=== PATIENT | male | born 1965 | race Caucasian/White ===

== ENCOUNTER 2017-08-30 08:43 | Day surgery (SDC) | payer BC ==
[~2017-08-30 08:43] MED LIST: Acetaminophen/HYDROcodone 325-5 MG Tab PO PRN; Ketorolac 30 MG/ML SDV ONE; Lactated Ringers 1,000 ML IV SCH; Lidocaine 1% 20 ML MDV ONE; Lidocaine 2% 5 ML SDV ONE; Midazolam 1 MG/ML 2 ML SDV ONE; Ondansetron 4 MG/2 ML SDV ONE; Propofol 200 MG/20 ML SDV ONE; ceFAZolin 2 GM in Premix Bag 1 BAG IV SCH; fentaNYL 100 MCG/2 ML SDV ONE
--- NOTE | 2017-08-30 09:29 | PCM.PREANE ---
Preanesthetic Assessment - Anesthesia/Transfusion/Family Hx Anesthesia History: Prior Anesthesia Reaction Other Type of Anesthesia Reaction Comment: states "woke up" during retinal surgery Family History of Anesthesia Reaction: No Transfusion History: No Prior Transfusion(s) - Review of Systems General: No Symptoms Pulmonary: No Symptoms Cardiovascular: No Symptoms Gastrointestinal: No Symptoms Neurological: No Symptoms, Difficulty Walking - Physical Assessment NPO Status Date: 08/29/17 O2 Sat by Pulse Oximetry: 95 Respiratory Rate: 16 Vital Signs: Last Vital Signs Temp 36.4 C 08/30/17 09:15 Pulse 82 08/30/17 09:15 Resp 16 08/30/17 09:15 BP 118/68 08/30/17 09:15 Pulse Ox 95 08/30/17 09:15 Height: 1.96 m Weight: 113.398 kg ASA Class: 2 Mental Status: Alert & Oriented x3 Airway Class: Mallampati = 1 Dentition: Reports: Normal Dentition ROM/Head Extension: Full Lungs: Clear to Auscultation, Normal Respiratory Effort Cardiovascular: Regular Rate, Regular Rhythm - Allergies Allergies/Adverse Reactions: Allergies Allergy/AdvReac Type Severity Reaction Status Date / Time No Known Allergies Allergy Verified 08/27/17 16:13 - Anesthesia Plan Pre-Op Medication Ordered: None (PMH: smoker, renal stones, torn meniscus) - Acknowledgements Anesthesia Type Planned: General Anesthesia Pt an Appropriate Candidate for the Planned Anesthesia: Yes Alternatives and Risks of Anesthesia Discussed w Pt/Guardian: Yes Pt/Guardian Understands and Agrees with Anesthesia Plan: Yes PreAnesthesia Questionnaire HEENT History: Reports: Cataract, Other (See Below) Other HEENT History: wears glasses Cardiovascular History: Reports: None Respiratory History: Reports: None Gastrointestinal History: Reports: None Genitourinary History: Reports: Renal Calculus Musculoskeletal History: Reports: None Neurological History: Reports: None Psychiatric History: Reports: None Endocrine/Metabolic History: Reports: None Hematologic History: Reports: None Immunologic History: Reports: None Oncologic (Cancer) History: Reports: None Dermatologic History: Reports: None - Infectious Disease History Infectious Disease History: Reports: None - Past Surgical History Head Surgeries/Procedures: Reports: None HEENT Surgical History: Reports: Cataract Surgery, Visual Other HEENT Surgeries/Procedures: repair of detached retina on right eye Cardiovascular Surgical History: Reports: None Respiratory Surgical History: Reports: None GI Surgical History: Reports: None Male Surgical History: Reports: Lithotripsy (ESWL) Neurological Surgical History: Reports: None Oncologic Surgical History: Reports: None - SUBSTANCE USE Smoking Status *Q: Current Every Day Smoker Tobacco Use Within Last Twelve Months: Cigarettes Recreational Drug Use History: No - HOME MEDS Home Medications: Home Meds Hydrocodone/Acetaminophen [Hydrocodon-Acetaminophen 5-325] 1 - 2 tab PO Q4H PRN 08/27/17 [History] - CURRENT (IN HOUSE) MEDS Current Meds: Current Medications Hydrocodone Bitart/Acetaminophen (Cable 325-5 Mg) 1 - 2 tab PO Q4H PRN PRN Reason: Pain Cefazolin Sodium/Dextrose 2 gm (/ Premix) 50 mls @ 100 mls/hr IV ONCALL AFSHIN Lactated Ringer's (Ringers, Lactated) 1,000 mls @ 100 mls/hr IV ASDIRECTED [facility] Last Admin: 08/30/17 09:16 Dose: 100 mls/hr Discontinued Medications Fentanyl (Sublimaze) Confirm Administered Dose 100 mcg .ROUTE .STK-MED ONE Stop: 08/30/17 08:42 Ketorolac Tromethamine (Toradol) Confirm Administered Dose 30 mg .ROUTE .STK- MED ONE Stop: 08/30/17 08:40 Ketorolac Tromethamine (Toradol) Confirm Administered Dose 30 mg .ROUTE .STK- MED ONE Stop: 08/30/17 08:41 Lidocaine (Xylocaine-Mpf 2%) Confirm Administered Dose 5 ml .ROUTE .STK-MED ONE Stop: 08/30/17 08:40 Lidocaine (Xylocaine-Mpf 2%) Confirm Administered Dose 10 ml .ROUTE .STK-MED ONE Stop: 08/30/17 08:41 Lidocaine HCl (Xylocaine 1%) Confirm Administered Dose 20 ml .ROUTE .STK-MED ONE Stop: 08/30/17 07:20 Midazolam HCl (Versed 1 Mg/Ml) Confirm Administered Dose 2 mg .ROUTE .STK-MED ONE Stop: 08/30/17 08:42 Ondansetron HCl (Zofran) Confirm Administered Dose 4 mg .ROUTE .STK-MED ONE Stop: 08/30/17 08:40 Ondansetron HCl (Zofran) Confirm Administered Dose 4 mg .ROUTE .STK-MED ONE Stop: 08/30/17 08:41 Propofol (Diprivan 20 Ml) Confirm Administered Dose 400 mg .ROUTE .STK-MED ONE Stop: 08/30/17 08:42
[2017-08-30] MEDS ORDERED: ceFAZolin 1 GM Vial ONE (09:52)
--- NOTE | 2017-08-30 10:37 | PCM.OPNOTE ---
- General Post-Op/Procedure Note Date of Surgery/Procedure: 08/30/17 Operative Procedure(s): R knee scope with PMM Post-Op Diagnosis: R knee medial meniscus tear Anesthesia Technique: General LMA Primary Surgeon: Fara Riddle Sap Basis Architect: Solomon Betts in mLs: 5 Condition: Good Free Text/Narrative:: tt=12 min #[id number]
--- NOTE | 2017-08-30 11:59 | PCM.POSTAN ---
POST ANESTHESIA ASSESSMENT - MENTAL STATUS Mental Status: Alert, Oriented - RESPIRATORY Respiratory Status: Respiratory Rate WNL, Airway Patent, O2 Saturation Stable - CARDIOVASCULAR CV Status: Pulse Rate WNL, Blood Pressure Stable - GASTROINTESTINAL GI Status: No Symptoms - POST OP HYDRATION Hydration Status: Adequate & Stable
[2017-08-30 12:34] VITALS: BP 112/65
--- NOTE | 2017-08-30 13:22 | PCM48HPAN ---
Post Anesthesia Note - EVALUATION WITHIN 48HRS OF ANESTHETIC Vital Signs in Normal Range: Yes Patient Participated in Evaluation: Yes Respiratory Function Stable: Yes Airway Patent: Yes Cardiovascular Function Stable: Yes Hydration Status Stable: Yes Pain Control Satisfactory: Yes Nausea and Vomiting Control Satisfactory: Yes Mental Status Recovered: Yes
--- NOTE | 2017-08-30 17:36 | OR ---
SURGEON: Fara Riddle MD DATE OF PROCEDURE: 08/30/2017 PREOPERATIVE DIAGNOSIS: Right knee medial meniscus tear. POSTOPERATIVE DIAGNOSIS: Right knee medial meniscus tear. PROCEDURE: Right knee arthroscopy with partial medial meniscectomy. OWNER CONSULTING ENGINEER: Solomon Betts PA-C. ANESTHESIA: General. ESTIMATED BLOOD LOSS: 5 mL. TOURNIQUET TIME: 12 minutes. COMPLICATIONS: None. DVT PROPHYLAXIS: Not indicated. IMPLANTS USED: None. BRIEF HISTORY: Benjamin is a 52-year-old male who has had complaint of intermittent right knee pain. He has tried conservative treatment, which has not given him lasting relief. An MRI was obtained, which did show a complex tear of the medial meniscus. Due to his lack of response to conservative treatment, I did recommend surgical intervention. The risks and goals of procedure were discussed with the patient and were documented preoperatively. He agreed to proceed. DESCRIPTION OF PROCEDURE: The patient was properly identified and brought to the operating room. He was transferred from the OR cart and placed on the operating table in supine position. General anesthesia was administered. After adequate anesthesia was obtained, a well-padded tourniquet was applied to the right lower extremity. The right lower extremity was then prepped in standard fashion using ChloraPrep solution. It was then sterilely draped. A time-out was performed to ensure correct site and procedure. Preoperative antibiotics were given. The surgical site had been marked preoperatively. An Esmarch was used to exsanguinate the right lower extremity and the tourniquet was inflated to 250 mmHg. A lateral portal arthrotomy was established. Blunt trocar and cannula were introduced into the suprapatellar pouch. Camera, inflow, and outflow were assembled. No significant synovitis was noted. The patellofemoral joint was visualized. He did have an abundant fat pad, which made visualization difficult. I then extended down the lateral gutter and no loose bodies were identified. As I was extending to the medial gutter, there appeared to be a small plica fold, which was impinging on the femoral condyle. I was able to pass underneath this to extend down the medial gutter. No loose bodies were identified within the medial gutter. I then entered the medial compartment. A medial portal arthrotomy was established. A blunt probe was inserted. He was found to have a radial tear along the posterior horn of the medial meniscus. Using a combination of biters and shaver, this was resected back to a stable remnant. It was again probed and the remainder was found to be stable. I then inspected the joint surfaces. He did have some loose fragments of cartilage along the weightbearing portion of medial femoral condyle. A chondroplasty was performed. 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 Grade 2 chondromalacia was noted along the medial tibial plateau. I then entered the notch. Both the ACL and PCL were visualized and probed and found to be intact. I then entered the lateral compartment. The lateral meniscus was probed and found to be stable. No significant degenerative changes were noted. I then re-entered the patellofemoral joint. The shaver was used to resect a small portion of the fat pad to allow visualization. The patella appeared to track centrally. Diffuse grade 2 chondromalacia was noted. I was able to examine the soft tissue impingement medially. This portion was resected to prevent any further impingement. Instruments were then removed from the knee. The portal sites were closed with 3-0 nylon. Lidocaine 1% was injected along the portal tracts. Xeroform gauze was placed over the wound and a bulky dressing was applied. The tourniquet was then deflated. He was awakened from his anesthetic and transferred back to the operating room cart. He was brought to recovery room in stable condition. All needle and sponge counts were correct. DINORAH / MERY /[id number]
== END 2017-08-30 12:55 | disposition home or self-care (01) ==
LOC: MW.SDS 08:43
PROVIDERS: ATTEND Orthopaedic Surgery
DX: S83.231A Complex tear of medial meniscus, current injury, right knee, initial encounter (principal); M22.41 Chondromalacia patellae, right knee; F17.210 Nicotine dependence, cigarettes, uncomplicated; Z87.442 Personal history of urinary calculi; Z98.49 Cataract extraction status, unspecified eye; Z98.890 Other specified postprocedural states
CPT/HCPCS: 29881; J0690; J1885; J2250; J2405; J3010; J7120; J2704

== ENCOUNTER 2019-03-11 07:58 | Emergency (ER) | payer BC, OTHER ==
[2019-03-11] MEDS ORDERED: diphenhydrAMINE 25 MG Cap PO ONE (08:08)
--- NOTE | 2019-03-11 08:12 | EDM.PDOC ---
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 He denies any cramping, shortness of breath or difficulty swallowing. Review of systems: As per history of present illness and below otherwise all systems reviewed and negative. Past medical history: As per history of present illness and as reviewed below otherwise noncontributory. Surgical history: As per history of present illness and as reviewed below otherwise noncontributory. Social history: No reported history of drug or alcohol abuse. Family history: As per history of present illness and as reviewed below otherwise noncontributory. Physical exam: General: Well developed, well nourished in NAD HEENT: Atraumatic, normocephalic, pupils reactive, negative for conjunctival pallor or scleral icterus, mucous membranes moist, throat clear, neck supple, nontender, trachea midline. No Stridor Lungs: Clear to auscultation, breath sounds equal bilaterally, chest nontender. No wheezing Heart: S1S2, regular, negative for clicks, rubs, or JVD. Abdomen: NABS, Soft, nondistended, nontender. Negative for masses or hepatosplenomegaly. Negative for costovertebral tenderness. Pelvis: Stable nontender. Genitourinary: Deferred. Rectal: Deferred. Extremities: Atraumatic, negative for cords or calf pain. Neurovascular unremarkable. Neuro: Awake, alert, oriented. Cranial nerves II through XII unremarkable. Cerebellum unremarkable. Motor and sensory unremarkable throughout. Exam nonfocal. Skin: Hives diffuse warm and dry Diagnostics: None Therapeutics: Gen. 50 mg by mouth ED Course: stable Impression: Urticaria Prescriptions: Medrol Dosepak Plan: Take meds as directed, follow up with your primary care physician, return to ER if symptoms worsen or change. Definitive disposition and diagnosis as appropriate pending reevaluation and review of above. - Related Data Allergies Allergy/AdvReac Type Severity Reaction Status Date / Time No Known Allergies Allergy Verified 03/11/19 08:09 Home Meds: Home Meds methylPREDNISolone [Medrol] 4 mg PO ASDIRECTED #1 dosepk 03/11/19 [Rx] Past Medical History HEENT History: Reports: Cataract, Other (See Below) Other HEENT History: wears glasses Cardiovascular History: Reports: None Respiratory History: Reports: None Gastrointestinal History: Reports: None Genitourinary History: Reports: Renal Calculus Musculoskeletal History: Reports: None Neurological History: Reports: None Psychiatric History: Reports: None Endocrine/Metabolic History: Reports: None Hematologic History: Reports: None Immunologic History: Reports: None Oncologic (Cancer) History: Reports: None Dermatologic History: Reports: None - Infectious Disease History Infectious Disease History: Reports: None - Past Surgical History Head Surgeries/Procedures: Reports: None HEENT Surgical History: Reports: Cataract Surgery, Visual Other HEENT Surgeries/Procedures: repair of detached retina on right eye Cardiovascular Surgical History: Reports: None Respiratory Surgical History: Reports: None GI Surgical History: Reports: None Male Surgical History: Reports: Lithotripsy (ESWL) Neurological Surgical History: Reports: None Oncologic Surgical History: Reports: None Social & Family History - Caffeine Use Caffeine Use: Reports: Soda ED ROS GENERAL - Review of Systems Review Of Systems: See Below ED EXAM, SKIN/RASH Exam: See Below Course - Vital Signs Last Recorded V/S: Last Vital Signs Temp 96.9 F 03/11/19 08:07 Pulse 67 03/11/19 08:07 Resp 18 03/11/19 08:07 BP 124/71 03/11/19 08:07 Pulse Ox 95 03/11/19 08:07 - Orders/Labs/Meds Meds: Medications Discontinued Medications Generic Name Dose Route Start Last Admin Trade Name Carmelita PRN Reason Stop Dose Admin Diphenhydramine HCl 50 mg 03/11/19 08:08 Benadryl PO 03/11/19 08:09 ONETIME ONE Departure - Departure Time of Disposition: 08:11 Disposition: Home, Self-Care 01 Condition: Good Clinical Impression: Urticaria - Discharge Information *PRESCRIPTION DRUG MONITORING PROGRAM REVIEWED*: No *COPY OF PRESCRIPTION DRUG MONITORING REPORT IN PATIENT AV: No Prescriptions: methylPREDNISolone [Medrol] 4 mg PO ASDIRECTED #1 dosepk Referrals: Sonya Iglesias NP [Primary Care Provider] - Forms: ED Department Discharge Additional Instructions: The following information is given to patients seen in the emergency department who are being discharged to home. This information is to outline your options for follow-up care. We provide all patients seen in our emergency department with a follow-up referral. The need for follow-up, as well as the timing and circumstances, are variable depending upon the specifics of your emergency department visit. If you don't have a primary care physician on staff, we will provide you with a referral. We always advise you to contact your personal physician following an emergency department visit to inform them of the circumstance of the visit and for follow-up with them and/or the need for any referrals to a consulting specialist. The emergency department will also refer you to a specialist when appropriate. This referral assures that you have the opportunity for follow-up care with a specialist. All of these measure are taken in an effort to provide you with optimal care, which includes your follow-up. Under all circumstances we always encourage you to contact your private physician who remains a resource for coordinating your care. When calling for follow-up care, please make the office aware that this follow-up is from your recent emergency room visit. If for any reason you are refused follow-up, please contact the [facility] Emergency Department at and asked to speak to the emergency department charge nurse. Take meds as directed, follow up with your primary care physician, return to ER if symptoms worsen or change. [facility] [address] [place] [id number]
[2019-03-11 12:20] VITALS: BP 103/67; PULSE 66
== END 2019-03-11 08:31 | disposition home or self-care (01) ==
LOC: MW.ED 07:58
DX: L50.9 Urticaria, unspecified (principal); Z98.49 Cataract extraction status, unspecified eye
CPT/HCPCS: 99282; 99283

== ENCOUNTER 2021-07-05 11:19 | Emergency (ER) | payer BC ==
[2021-07-05] MEDS ORDERED: Ketorolac 30 MG/ML SDV IVPUSH ONE (11:33)
[2021-07-05] MEDS ORDERED: Ondansetron 4 MG/2 ML SDV IVPUSH ONE (11:33)
[2021-07-05] MEDS ORDERED: Sodium Chloride 0.9% 2.5 ML Syringe FLUSH PRN (11:33)
[2021-07-05] MEDS ORDERED: Sodium Chloride 0.9% 10 ML Syringe FLUSH PRN (11:33)
[2021-07-05 11:34] VITALS: PULSE 77
[2021-07-05] MEDS ORDERED: Lactated Ringers 1,000 ML IV ONE (11:34)
[2021-07-05 12:05] LABS: BLOOD UREA NITROGEN,BUN 14 mg/dL (7.0-18.0); CHLORIDE,CL 102 mmol/L (98-107); GLUCOSE RANDOM 174 mg/dL (74-106); LIPASE 52 U/L (73-393); POTASSIUM,K 4.1 mmol/L (3.5-5.1); SODIUM,NA 137 mmol/L (136-148)
[2021-07-05 12:09] LABS: CARBON DIOXIDE,CO2 25.4 mmol/L (21.0-32.0)
--- NOTE | 2021-07-05 12:49 | CT ---
HISTORY: Right-sided abdominal pain. COMPARISON: None. TECHNIQUE: CT of the abdomen pelvis. No intravenous contrast. Coronal/sagittal reconstruction does. FINDINGS: Lung bases: There is no pleural or pericardial effusion. The heart size is normal. Linear opacities are present at the lung bases, likely atelectasis. No basilar pneumothorax or suspicious pulmonary nodule. Abdomen/pelvis: Liver morphology is non cirrhotic. There is no perihepatic ascites. No inflammatory changes are seen adjacent to the gallbladder. No splenomegaly. Bilateral nephrolithiasis. For example, a 2 millimeter stone in the left kidney on image 47 of series 201. There is no left hydronephrosis or hydroureter. There is, however, a stone present in the distal left ureter, just proximal to the left UVJ. The stone measures approximately 6 millimeters in dimension. There is mild right hydronephrosis and hydroureter. There is a 4 millimeter stone in the right ureter, which is seen at the level of L4-5, seen on image 110 of series 201. The urinary bladder and extraperitoneal space of Retzius are clear. The prostate is not enlarged. There is no mural thickening involving the small bowel or colon. There is no perienteric edema. There is no evidence for small bowel or colonic obstruction. No transition point. No evidence for appendicitis. No inguinal or pelvic sidewall lymphadenopathy. The retroperitoneum and gastrohepatic ligament are normal. The bone windows demonstrate small sclerotic foci are present in the pelvis and proximal femora, likely benign bone islands. Impression: 1. Bilateral uroliths. 2. The largest urolith is seen just proximal to the left UVJ, but there is no associated hydronephrosis or hydroureter. This stone is likely nonobstructive. 3. 4 millimeter stone in the right ureter at the level of L4-5, with mild right hydronephrosis/hydroureter. 4. Normal caliber appendix. No associated inflammatory changes. Please note that all CT scans at this facility use dose modulation, iterative reconstruction, and/or weight-based dosing when appropriate to reduce radiation dose to as low as reasonably achievable. Dictated by Abisai Britt MD @ 07/05/2021 12:48:36 PM (Electronically Signed)
[2021-07-05] MEDS ORDERED: Tamsulosin 0.4 MG Cap.ER PO ONE (12:52)
--- NOTE | 2021-07-05 13:27 | EDM.PDOC ---
ED HPI GENERAL MEDICAL PROBLEM - General Chief Complaint: Abdominal Pain Stated Complaint: R SIDE STABBING PAIN IN SIDE Time Seen by Provider: 07/05/21 11:22 - History of Present Illness INITIAL COMMENTS - FREE TEXT/NARRATIVE: HISTORY AND PHYSICAL: History of present illness: This is a 56-year-old gentleman with a history significant for kidney stones approximately 15 years ago, no history of hypertension, diabetes, liver, lung, kidney problems, abdominal or chest surgeries in the past who presents ER today complaining of sharp right sided abdominal pain that started earlier today. Patient reports associated nausea with no vomiting or diarrhea. Patient denies any recent fevers, shakes, chills, dysuria, frequency, urgency, hematuria, melena, bright red blood per rectum. Patient reports the pain is being there constantly. Review of systems: As per history of present illness and below otherwise all systems reviewed and negative. Past medical history: As per history of present illness and as reviewed below otherwise noncontributory. Surgical history: As per history of present illness and as reviewed below otherwise noncontributory. Social history: No reported history of drug abuse. Family history: As per history of present illness and as reviewed below otherwise noncontributory. Physical exam: This patient was seen and evaluated during the 2019 SARS-CoV-2 novel coronavirus pandemic period. Community viral transmission is ongoing at time of this encounter and the emergency department is operating under pandemic response procedures. Constitutional: Patient is oriented to person, place, and time. Appears well- developed and well-nourished. No distress. HEENT: Moist mucous membranes Head: Normocephalic and atraumatic Eyes: Right eye exhibits no discharge. Left eye exhibits no discharge. No scleral icterus Neck: Normal range of motion. No tracheal deviation present. Cardiovascular: Normal rate and regular rhythm. Pulmonary: Effort normal, no respiratory distress. Abd: Soft, nondistended, no rebound/guarding, no psoas or obturator signs, no tenderness at Mcberney's point, no Mcgrath's sign. Pt does not present with an exam that would be consistent with an acute surgical abdomen at this time. Tenderness palpation right mid abdomen Musculoskeletal: Normal range of motion Neurologic: Alert and oriented to person, place and time. Skin: [place], warm and dry. Psychiatric: Normal mood and affect. Behavior is normal. Judgment and thought content normal. Nursing note and vital signs have been reviewed Diagnostics: Patient's CT scan of the abdomen pelvis reveals bilateral uroliths. The largest urolith is just proximal to the left UVJ but there is no associated hydronephrosis or hydroureter. The stone is likely nonobstructive. There is a 4 mm stone in the right ureter at the level of L4-L5 with mild right hydronephrosis/hydroureter. Therapeutics: Toradol 15 mg IV, Zofran, LR, Flomax Assessment and plan: 56-year-old gentleman who presents ER today with bilateral stones. Patient has a kidney stone to his left UVJ with no hydronephrosis or hydroureter and patient is asymptomatic on the left side. Patient does have a 4 mm stone in the right ureter at the level of L4-L5 with mild right hydronephrosis and hydroureter. Patient currently is pain-free after receiving his Toradol Zofran and LR. Patient feels comfortable with the plan to be discharged home with outpatient follow-up with urology in [facility]. Patient's urinalysis is normal. Patient's labs are all within normal limits. Patient is nontoxic-appearing without evidence of intractable pain, sepsis Reassessment at the time of disposition demonstrates that the patient is in no acute distress. The patient has remained stable throughout the entire ED visit and is without objective evidence for acute process requiring urgent intervention or hospitalization. The patient is stable for discharge, counseling is provided as documented above, discussed symptomatic treatment and specific c onditions for return. I have spoken with the patient/caregiver and discussed todays findings, in addition to providing specific details for the plan of care. Questions are answered and there is agreement with the plan. Definitive disposition and diagnosis as appropriate pending reevaluation and review of above. RLQ Pain Score (Numeric/FACES): 9 - Related Data Allergies Allergy/AdvReac Type Severity Reaction Status Date / Time No Known Allergies Allergy Verified 07/05/21 11:33 Home Meds: Home Meds Eszopiclone 2 tab PO BEDTIME 07/05/21 [History] Ibuprofen 600 mg PO Q6HR PRN #30 tablet 07/05/21 [Rx] Melatonin 1 tab PO BEDTIME 07/05/21 [History] Ondansetron [Zofran ODT] 4 mg PO Q6H PRN #12 tab.dis 07/05/21 [Rx] Tamsulosin HCl [Flomax] 0.4 mg PO BEDTIME #7 cap.er.24h 07/05/21 [Rx] traMADol [Ultram] 50 mg PO Q6H PRN #12 tab 07/05/21 [Rx] Past Medical History HEENT History: Reports: Cataract, Retinal Detachment, Other (See Below) Other HEENT History: wears glasses Cardiovascular History: Reports: None Respiratory History: Reports: None Gastrointestinal History: Reports: None Genitourinary History: Reports: Renal Calculus Musculoskeletal History: Reports: None Neurological History: Reports: None Psychiatric History: Reports: None Endocrine/Metabolic History: Reports: None Hematologic History: Reports: None Immunologic History: Reports: None Oncologic (Cancer) History: Reports: None Dermatologic History: Reports: None - Infectious Disease History Infectious Disease History: Reports: Chicken Pox - Past Surgical History Head Surgeries/Procedures: Reports: None HEENT Surgical History: Reports: Cataract Surgery, Visual Other HEENT Surgeries/Procedures: repair of detached retina on right eye Cardiovascular Surgical History: Reports: None Respiratory Surgical History: Reports: None GI Surgical History: Reports: None Male Surgical History: Reports: Lithotripsy (ESWL) Neurological Surgical History: Reports: None Oncologic Surgical History: Reports: None Social & Family History - Family History Family Medical History: No Pertinent Family History - Tobacco Use Years of Tobacco use: 30 Packs/Tins Daily: 0.5 - Caffeine Use Caffeine Use: Reports: None - Recreational Drug Use Recreational Drug Use: No ED ROS GENERAL - Review of Systems Review Of Systems: See Below ED EXAM, GENERAL - Physical Exam Exam: See Below Course - Vital Signs Last Recorded V/S: Last Vital Signs Temp 96.5 F L 07/05/21 11:30 Pulse 77 07/05/21 11:30 Resp 18 07/05/21 11:30 BP 120/62 07/05/21 11:30 Pulse Ox 94 L 07/05/21 11:30 - Orders/Labs/Meds Orders: Active Orders 24 hr Category Date Time Status Sodium Chloride 0.9% [Saline Flush] Med 07/05/21 11:33 Active 10 ml FLUSH ASDIRECTED PRN Sodium Chloride 0.9% [Saline Flush] Med 07/05/21 11:33 Active 2.5 ml FLUSH ASDIRECTED PRN Saline Lock Insert [OM.PC] Stat Oth 07/05/21 11:33 Ordered Medication Orders Sodium Chloride (Sodium Chloride 0.9% 10 Ml Syringe) 10 ml FLUSH ASDIRECTED PRN PRN Reason: Keep Vein Open Last Admin: 07/05/21 11:43 Dose: 10 ml Documented by: CIERRA Sodium Chloride (Sodium Chloride 0.9% 2.5 Ml Syringe) 2.5 ml FLUSH ASDIRECTED PRN PRN Reason: Keep Vein Open Last Admin: 07/05/21 11:43 Dose: 2.5 ml Documented by: CIERRA Labs: Laboratory Tests 07/05/21 07/05/21 07/05/21 Range/Units 11:40 11:40 12:55 WBC 9.75 (4.0-11.0) K/uL RBC 4.59 (4.50-5.90) M/uL Hgb 14.4 (13.0-17.0) g/dL Hct 41.8 (38.0-50.0) % MCV 91.1 (80.0-98.0) fL MCH 31.4 (27.0-32.0) pg MCHC 34.4 (31.0-37.0) g/dL RDW Std Deviation 45.2 (28.0-62.0) fl RDW Coeff of Miguel 14 (11.0-15.0) % Plt Count 221 (150-400) K/uL MPV 9.70 (7.40-12.00) fL Neut % (Auto) 86.5 H (48.0-80.0) % Lymph % (Auto) 8.9 L (16.0-40.0) % [place] % (Auto) 4.1 (0.0-15.0) % Eos % (Auto) 0.3 (0.0-7.0) % Baso % (Auto) 0.2 (0.0-1.5) % Neut # (Auto) 8.4 H (1.4-5.7) K/uL Lymph # (Auto) 0.9 (0.6-2.4) K/uL [place] # (Auto) 0.4 (0.0-0.8) K/uL Eos # (Auto) 0.0 (0.0-0.7) K/uL Baso # (Auto) 0.0 (0.0-0.1) K/uL Nucleated RBC % 0.0 /100WBC Nucleated RBCs # 0 K/uL Sodium 137 (136-148) mmol/L Potassium 4.1 (3.5-5.1) mmol/L Chloride 102 (98-107) mmol/L Carbon Dioxide 25.4 (21.0-32.0) mmol/L BUN 14 (7.0-18.0) mg/dL Creatinine 1.1 (0.8-1.3) mg/dL Est Cr Clr Drug Dosing 96.75 mL/min Estimated GFR (MDRD) > 60.0 ml/min Glucose 174 H (74-106) mg/dL Calcium 8.5 (8.5-10.1) mg/dL Total Bilirubin 0.3 (0.2-1.0) mg/dL AST 15 (15-37) IU/L ALT 24 (14-63) IU/L Alkaline Phosphatase 96 (46-116) U/L Total Protein 7.3 (6.4-8.2) g/dL Albumin 3.6 (3.4-5.0) g/dL Globulin 3.7 (2.6-4.0) g/dL Albumin/Globulin Ratio 1.0 (0.9-1.6) Lipase 52 L (73-393) U/L Urine Color YELLOW Urine Appearance CLEAR Urine pH 6.0 (5.0-8.0) Ur Specific [place] 1.010 (1.001-1.035) Urine Protein NEGATIVE (NEGATIVE) mg/dL Urine Glucose (UA) 500 H (NEGATIVE) mg/dL Urine Ketones NEGATIVE (NEGATIVE) mg/dL Urine Occult Blood LARGE H (NEGATIVE) Urine Nitrite NEGATIVE (NEGATIVE) Urine Bilirubin NEGATIVE (NEGATIVE) Urine Urobilinogen 0.2 (<2.0) EU/dL Ur Leukocyte Esterase NEGATIVE (NEGATIVE) Urine RBC 4-8 (0-2/HPF) Urine WBC 0-1 (0-5/HPF) Ur Epithelial Cells RARE (NONE-FEW) Urine Bacteria NOT SEEN (NEGATIVE) Meds: Medications Generic Name Dose Route Start Last Admin Trade Name Freq PRN Reason Stop Dose Admin Sodium Chloride 10 ml 07/05/21 11:33 07/05/21 11:43 Sodium Chloride 0.9% 10 Ml Syringe FLUSH 10 ml ASDIRECTED PRN Administration Keep Vein Open Sodium Chloride 2.5 ml 07/05/21 11:33 07/05/21 11:43 Sodium Chloride 0.9% 2.5 Ml Syringe FLUSH 2.5 ml ASDIRECTED PRN Administration Keep Vein Open Discontinued Medications Generic Name Dose Route Start Last Admin Trade Name Lvq PRN Reason Stop Dose Admin Lactated Ringer's 1,000 mls @ 999 mls/hr 07/05/21 11:34 07/05/21 11:43 Ringers, Lactated IV 07/05/21 12:34 999 mls/hr .BOLUS ONE Administration Ketorolac Tromethamine 30 mg 07/05/21 11:33 07/05/21 11:43 Ketorolac 30 Mg/Ml Sdv IVPUSH 07/05/21 11:34 30 mg ONETIME ONE Administration Ondansetron HCl 4 mg 07/05/21 11:33 07/05/21 11:43 Ondansetron 4 Mg/2 Ml Sdv IVPUSH 07/05/21 11:34 4 mg ONETIME ONE Administration Tamsulosin HCl 0.4 mg 07/05/21 12:52 07/05/21 12:59 Tamsulosin 0.4 Mg Cap.Er PO 07/05/21 12:53 0.4 mg ONETIME ONE Administration Departure - Departure Time of Disposition: 13:27 Disposition: Home, Self-Care 01 Condition: Fair Clinical Impression: Hydronephrosis, Hydroureter, Bilateral kidney stones, Bilateral hydronephrosis - Discharge Information Instructions: Renal Colic, [id number], Hydronephrosis, Kidney Stones, [id number] Referrals: Eugenia Rockwell DO [Primary Care Provider] - Additional Instructions: Your seen and evaluated in the ER today secondary to pain on the right side of your abdomen. The CT scan reveals that you do have a kidney stone on the right side that is approximately 4 mm with a small amount of swelling of your kidney. Coincidently, there is also a 5 mm kidney stone in the left ureter that is almost ready to pass into your bladder. There is no evidence of any swelling of your kidney or ureter on that side. You will be given a prescription for pain medicine and medication help you with your nausea. You also be given a medication called Flomax help you pass your stone. Please make an appointment to follow-up with our urologist in [facility] for further evaluation. You should strain your urine to try to catch a stone and take it with you with your appointment. Dr. Abisai Tolentino Urologist [address] [place] [address] The following information is given to patients seen in the emergency department who are being discharged to home. This information is to outline your options for follow-up care. We provide all patients seen in our emergency department with a follow-up referral. The need for follow-up, as well as the timing and circumstances, are variable depending upon the specifics of your emergency department visit. If you don't have a primary care physician on staff, we will provide you with a referral. We always advise you to contact your personal physician following an emergency department visit to inform them of the circumstance of the visit and for follow-up with them and/or the need for any referrals to a consulting specialist. The emergency department will also refer you to a specialist when appropriate. This referral assures that you have the opportunity for follow-up care with a specialist. All of these measure are taken in an effort to provide you with optimal care, which includes your follow-up. Under all circumstances we always encourage you to contact your private physician who remains a resource for coordinating your care. When calling for follow-up care, please make the office aware that this follow-up is from your recent emergency room visit. If for any reason you are refused follow-up, please contact the [facility] Emergency Department at and asked to speak to the emergency department charge nurse. Fili Novelty [facility] - [facility] [address] [place] [id number] [address] Sepsis Event Note (ED) - Evaluation Sepsis Screening Result: No Definite Risk - Focused Exam Vital Signs: Vital Signs Temp Pulse Resp BP Pulse Ox 07/05/21 11:30 96.5 F L 77 18 120/62 94 L - My Orders Last 24 Hours: My Active Orders 07/05/21 11:33 Sodium Chloride 0.9% [Saline Flush] 10 ml FLUSH ASDIRECTED PRN Sodium Chloride 0.9% [Saline Flush] 2.5 ml FLUSH ASDIRECTED PRN Saline Lock Insert [OM.PC] Stat - Assessment/Plan Last 24 Hours: My Active Orders 07/05/21 11:33 Sodium Chloride 0.9% [Saline Flush] 10 ml FLUSH ASDIRECTED PRN Sodium Chloride 0.9% [Saline Flush] 2.5 ml FLUSH ASDIRECTED PRN Saline Lock Insert [OM.PC] Stat
[2021-07-05 13:41] VITALS: BP 126/76
== END 2021-07-05 13:41 | disposition home or self-care (01) ==
LOC: MW.ED 11:19
DX: N13.2 Hydronephrosis with renal and ureteral calculous obstruction (principal); Z79.899 Other long term (current) drug therapy; Z72.0 Tobacco use
CPT/HCPCS: 74176; 80053; 81001; 83690; 85025; 96374; 99284; A9270; J1885; J2405; J7120

== ENCOUNTER 2022-03-22 07:54 | Emergency (ER) | payer BC ==
[2022-03-22] MEDS ORDERED: Diphtheria,Pertussis(Acell),Tetanus Vaccine 0.5 ML Syringe IM ONE (08:27)
[2022-03-22] MEDS ORDERED: Cephalexin 500 MG Cap PO ONE (08:27)
[2022-03-22 08:47] VITALS: BP 110/65; PULSE 75
== END 2022-03-22 08:46 | disposition home or self-care (01) ==
LOC: MW.ED 07:54
DX: L03.114 Cellulitis of left upper limb (principal); F17.210 Nicotine dependence, cigarettes, uncomplicated; Z79.899 Other long term (current) drug therapy; Z23 Encounter for immunization
CPT/HCPCS: 90471; 90715; 99283; A9270

== ENCOUNTER 2023-07-29 07:52 | Emergency (ER) | payer BC ==
[2023-07-29] MEDS: Ibuprofen 400 MG Tab PO ONE (08:24)
[2023-07-29] MEDS: Acetaminophen 325 MG Tab PO ONE (08:24)
[2023-07-29] MEDS: Dexamethasone 10 MG/ML SDV PO ONE (08:25)
[2023-07-29 08:50] LABS: CORONAVIRUS COVID-19 NAA POSITIVE (NEGATIVE); INFLUENZA A NAA NEGATIVE (NEGATIVE); INFLUENZA B NAA NEGATIVE (NEGATIVE); RESPIRATORY SYNCYTIAL VIR NAA NEGATIVE (NEGATIVE)
[2023-07-29 09:27] VITALS: BP 99/62; PULSE 89
== END 2023-07-29 09:25 | disposition home or self-care (01) ==
LOC: MW.ED 07:52
DX: U07.1 COVID-19 (principal); F17.210 Nicotine dependence, cigarettes, uncomplicated
CPT/HCPCS: 0241U; 71046; 71046-26; 99283; 99284; A9270-GY; J8540